=== PATIENT | male | born 1980 | race Caucasian/White ===

== ENCOUNTER 2019-11-15 19:29 | Emergency (ER) | payer OTHER ==
[2019-11-15 21:31] VITALS: BP 124/70
[2019-11-15 21:55] LABS: Influenza A Molecular Negative (Negative); Influenza B Molecular Negative (Negative)
[2019-11-15] MEDS ORDERED: Amoxicillin PO (*) 500 MG CAP PO ONE (22:10)
--- NOTE | 2019-11-15 22:12 | UC ---
Throat Pain/Nasal Emerson HPI - HPI Summary HPI Summary: 39-year-old male comes in with a chief complaint of runny nose sore throats and some body aches.'s been going on for couple days. It hurts to swallow. Less pain when he doesn't swallow. No chest congestion. His girlfriend was just diagnosed with influenza. Also has left ear pain. Does have a dry cough - History of Current Complaint Chief Complaint: UCGeneralIllness Stated Complaint: SORE THROAT, FATIGUE Time Seen by Provider: 11/15/19 22:04 Pain Intensity: 3 - Allergies/Home Medications Allergies/Adverse Reactions: Allergies Allergy/AdvReac Type Severity Reaction Status Date / Time No Known Allergies Allergy Verified 11/15/19 21:31 Home Medications: Home Medications Buprenorphine HCl/Naloxone HCl [Suboxone 12 mg-3 mg Sl Film] 1 each SL DAILY 12/30 [History Confirmed 11/15/19] Citalopram Hydrobromide [Celexa] 40 mg PO DAILY 11/15/19 [History Confirmed 12/30] Duloxetine HCl [Cymbalta] 20 mg PO DAILY 11/15/19 [History Confirmed 11/15/19] Gabapentin 600 mg PO TID PRN 11/15/19 [History Confirmed 11/15/19] PMH/Surg Hx/FS Hx/Imm Hx Previously Healthy: Yes - Surgical History Surgical History: None - Family History Known Family History: Positive: Non-Contributory - Social History Alcohol Use: None Substance Use Type: None Substance Use Comment - Amount & Last Used: opiate recovery Smoking Status (MU): Heavy Every Day Tobacco Smoker Type: Cigarettes Review of Systems All Other Systems Reviewed And Are Negative: Yes Constitutional: Positive: Other - SEE HPI Skin: Positive: Negative Eyes: Positive: Negative ENT: Positive: Sore Throat, Ear Ache, Nasal Discharge Respiratory: Positive: Cough Cardiovascular: Positive: Negative Gastrointestinal: Positive: Negative Motor: Positive: Negative Neurovascular: Positive: Negative Musculoskeletal: Positive: Myalgia Neurological: Positive: Negative Psychological: Positive: Negative Is Patient Immunocompromised?: No Physical Exam Triage Information Reviewed: Yes Appearance: No Pain Distress, Well-Nourished, Ill-Appearing - MILD Vital Signs: Initial Vital Signs Temp 97.9 F 11/15/19 21:26 Pulse 74 11/15/19 21:26 Resp 14 11/15/19 21:26 BP 124/70 11/15/19 21:26 Pulse Ox 96 11/15/19 21:26 Vital Signs Reviewed: Yes Eye Exam: Normal Eyes: Positive: Conjunctiva Clear ENT: Positive: Pharyngeal erythema, Nasal congestion, Nasal drainage, TMs normal , Tonsillar swelling, Tonsillar exudate, Uvula midline Neck: Positive: Supple Respiratory: Positive: Lungs clear, Normal breath sounds, No respiratory distress Cardiovascular: Positive: RRR Musculoskeletal: Positive: Strength Intact, ROM Intact Neurological: Positive: Alert, Muscle Tone Normal Psychological: Positive: Age Appropriate Behavior Skin Exam: Normal Throat Pain/Nasal Course/Dx - Course Course Of Treatment: DISCUSSED VIRAL VERSES BACTERIAL INFECTIONS AND THE ROLE OF ANTIBIOTICS. THE PATIENT PREFERS TO BE ON ANTIBIOTICS AT THIS TIME. - Differential Dx/Diagnosis Provider Diagnosis: Pharyngitis Discharge ED - Sign-Out/Discharge Documenting (check all that apply): Patient Departure All imaging exams completed and their final reports reviewed: No Studies - Discharge Plan Condition: Stable Disposition: HOME Prescriptions: Amoxicillin PO (*) [Amoxicillin 500 MG CAP*] 500 mg PO TID #29 cap Patient Education Materials: Pharyngitis (ED) Forms: *Work Release Referrals: Esme Regan MD [Primary Care Provider] - Additional Instructions: FOLLOW UP WITH YOUR DOCTOR IF NOT COMPLETELY IMPROVED. GET REEVALUATED SOONER IF NOT IMPROVING OR WORSE OR ANY QUESTIONS OR CONCERNS. - Billing Disposition and Condition Condition: STABLE Disposition: Home
== END 2019-11-15 22:21 | disposition home or self-care (01) ==
LOC: UCCORT 19:29
DX: J02.9 Acute pharyngitis, unspecified (principal); H92.02 Otalgia, left ear; R09.81 Nasal congestion; F17.210 Nicotine dependence, cigarettes, uncomplicated
CPT/HCPCS: 99212; A9270-GY; G0463